=== PATIENT | female | born 1975 | race Caucasian/White ===

== ENCOUNTER 2017-08-28 19:32 | Emergency (ER) | payer MEDICAID | END 2017-08-28 20:45 | disposition home or self-care (01) | LOC: E/R 19:32 | DX: R51 Headache (principal); H57.11 Ocular pain, right eye; H57.12 Ocular pain, left eye; R09.81 Nasal congestion; R50.9 Fever, unspecified | CPT/HCPCS: 99284; Z7502 ==

== ENCOUNTER 2017-09-01 10:55 | Emergency (ER) | payer MEDICAID ==
[2017-09-01] MEDS: KETOROLAC 30 MG INJ IM (12:37)
[2017-09-01 13:06] LABS: ADD UMIC YES; UR ASCORBIC ACID NEGATIVE (NEGATIVE); UR BACTERIA FEW /HPF (NONE SEEN); UR BILIRUBIN (Dip) NEGATIVE (NEGATIVE); UR BLOOD (Dip) 1+ mg/dL (NEGATIVE); UR CLARITY SLIGHTLY CLOUDY (CLEAR); UR COLOR YELLOW (YELLOW); UR GLUCOSE (Dip) 3+ mg/dL (NEGATIVE); UR KETONES (Dip) TRACE mg/dL (NEGATIVE); UR LEUKOCYTE ESTERASE (Dip) 1+ Leu/ul (NEGATIVE); UR MUCUS FEW /HPF (NONE SEEN); UR NITRITE (Dip) NEGATIVE (NEGATIVE); UR RBC 3 /HPF (0-5); UR SPECIFIC GRAVITY (Dip) 1.023 (1.003-1.030); UR SQUAMOUS EPITHELIAL CELL FEW /HPF (FEW); UR TOTAL PROTEIN (Dip) NEGATIVE (NEGATIVE); UR UROBILINOGEN (Dip) NEGATIVE (NEGATIVE); UR WBC 53 /HPF (0-5)
== END 2017-09-01 14:25 | disposition home or self-care (01) ==
LOC: FTE 10:55
DX: N39.0 Urinary tract infection, site not specified (principal); R06.02 Shortness of breath; R51 Headache
CPT/HCPCS: 71045; 81001; 87400; 96372; 99284-25

== ENCOUNTER 2017-11-09 17:47 | Emergency (ER) | payer MEDICAID ==
[2017-11-09] MEDS: LIDOCAINE 1% (MDV) 10 ML INJ INFIL (21:09)
[2017-11-09] MEDS: IBUPROFEN 600 MG TAB PO (21:09)
[2017-11-09] MEDS: DIPHTH/TET/ACEL PERTUSS (ADULT) 0.5 ML VIAL IM* (21:10)
== END 2017-11-09 23:37 | disposition home or self-care (01) ==
LOC: E/R 17:47 → FTE 23:37
DX: L03.031 Cellulitis of right toe (principal); Z23 Encounter for immunization
CPT/HCPCS: 10061; 90471; 90715; 99284-25

== ENCOUNTER 2017-11-11 15:43 | Emergency (ER) | payer SELFPAY, MEDICAID | END 2017-11-11 16:13 | disposition home or self-care (01) | LOC: E/R 16:13 | DX: Z48.01 Encounter for change or removal of surgical wound dressing (principal) | CPT/HCPCS: 99281 ==

== ENCOUNTER 2019-04-11 17:41 | Emergency (ER) | payer SELFPAY ==
[2019-04-11 17:57] LABS: ADD MAN DIFF? NO
[2019-04-11 18:00] LABS: BASOPHIL # 0.1 10^3/ul (0.0-0.1); BASOPHILS % 0.7 % (0.0-2.0); EOSINOPHILS # 0.2 10^3/ul (0.0-0.5); EOSINOPHILS % 2.1 % (0.0-7.0); HEMATOCRIT 34.5 % (37.0-47.0); HEMOGLOBIN 11.2 g/dl (12.0-16.0); LYMPHOCYTES # 2.8 10^3/ul (0.8-2.9); LYMPHOCYTES % 29.5 % (15.0-51.0); MEAN CORPUSCULAR HEMOGLOBIN 26.7 pg (29.0-33.0); MEAN CORPUSCULAR HGB CONC 32.5 g/dl (32.0-37.0); MEAN CORPUSCULAR VOLUME 82.3 fl (82.0-101.0); MEAN PLATELET VOLUME 10.2 fl (7.4-10.4); MONOCYTE # 0.6 10^3/ul (0.3-0.9); MONOCYTES % 6.5 % (0.0-11.0); NEUTROPHIL # 5.8 10^3/ul (1.6-7.5); NEUTROPHILS % 60.8 % (39.0-77.0); PLATELET COUNT 334 10^3/UL (140-415); RED BLOOD COUNT 4.19 10^6/ul (4.20-5.40); RED CELL DISTRIBUTION WIDTH 14.6 % (11.5-14.5)
[2019-04-11 18:00] LABS: WHITE BLOOD COUNT 9.5 10^3/ul (4.8-10.8)
[2019-04-11] MEDS: SOD CHLORIDE 0.9% 1,000 ML IV (18:05)
[2019-04-11] MEDS: morphine 4 MG/ML VIAL IV (18:06)
[2019-04-11] MEDS: ONDANSETRON 4 MG INJ IV (18:06)
[2019-04-11 18:19] LABS: ALANINE AMINOTRANSFERASE 33 IU/L (13-69); ALBUMIN 3.9 g/dl (3.3-4.9); ALBUMIN/GLOBULIN RATIO 1.18; ALKALINE PHOSPHATASE 89 IU/L (42-121); ANION GAP 11 (5-13); ASPARTATE AMINO TRANSFERASE 35 IU/L (15-46); BILIRUBIN,INDIRECT 0.4 mg/dl (0-1.1); BILIRUBIN,TOTAL 0.4 mg/dl (0.2-1.3); BLOOD UREA NITROGEN 17 mg/dl (7-20); CALCIUM 9.3 mg/dl (8.4-10.2); CARBON DIOXIDE 25 mmol/L (21-31); CHLORIDE 97 mmol/L (97-110); CREATININE 0.76 mg/dl (0.44-1.00); Estimated GFR > 60 mL/min (>60); GLUCOSE 336 mg/dl (70-220); POTASSIUM 3.6 mmol/L (3.5-5.1); SODIUM 133 mmol/L (135-144); TOTAL PROTEIN 7.2 g/dl (6.1-8.1)
[2019-04-11 18:20] LABS: PARTIAL THROMBOPLASTIN TIME 30.4 Sec (23.0-35.0); PROTIME 12.3 Sec (11.9-14.9)
[2019-04-11 18:24] LABS: ETHANOL < 10.0 mg/dl (0-0)
[2019-04-11 18:28] LABS: AMPHETAMINE/METHAMPHETAMINE Negative (NEGATIVE); BARBITURATES Negative (NEGATIVE); BENZODIAZEPINES Negative (NEGATIVE); CANNABINOIDS Negative (NEGATIVE); COCAINE Negative (NEGATIVE); OPIATES Negative (NEGATIVE)
[2019-04-11] MEDS: IOHEXOL 300MG/ML 150 ML BTL (19:19)
[2019-04-11] MEDS: SOD CHLORIDE 0.9% 100 ML (19:19)
== END 2019-04-11 20:41 | disposition home or self-care (01) ==
LOC: E/R 17:41
DX: R10.9 Unspecified abdominal pain (principal); I10 Essential (primary) hypertension; E11.9 Type 2 diabetes mellitus without complications; M54.2 Cervicalgia; M25.551 Pain in right hip
CPT/HCPCS: 36415; 70450; 71260; 72125; 73550; 74177; 80053; 80307; 81025; 85025; 85610; 85730; 96361; 96374; 96375; 99285-25